=== PATIENT | male | born 1945 | race Two or more races ===

== ENCOUNTER → 2022-09-21 15:30 | Outpatient (CLI) | payer SELFPAY ==
--- NOTE | ~2022-09-21 | XR_ITS ---
EXAMINATION: XR wrist LT min 3V DATE: 09/21/2022 16:13 INDICATION: Left wrist pain. TECHNIQUE: 4 views of left wrist were obtained. COMPARISON: None. FINDINGS: Bone alignment is normal. No fracture. 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 IMPRESSION: 1. Polyarticular osteoarthritis. Reviewed, dictated and finalized at location E.
== END ==
DX: M19.032 Primary osteoarthritis, left wrist (principal)
CPT/HCPCS: 73110

== ENCOUNTER 2025-01-16 10:36 | Outpatient (CLI) | payer MEDICARE, SELFPAY ==
--- OUTSIDE RECORDS SUMMARY | 2024-08-29 04:58 | XMS_ITS | Continuity of Care Document ---
Author Organization [facility] Address [address] [facility] [address] [place] [address] Phone Care Team Providers Care Buyers' Agent Name Role Phone Kevin Mishra OD Unavailable Unavailable Allergies, Adverse Reactions, Alerts Substance Reaction Status Criticality fluorescein Active No Information Medications Medication Instructions Dosage Effective Dates (start - stop) Status Comments dexlansoprazole 60 mg capsule,biphase delayed release - Active Januvia 100 mg tablet - Acti ve Jardiance 25 mg tablet - Act jose pioglitazone 45 mg tablet - Active trazodone 50 mg tablet - Act jose ergocalciferol (vitamin D2) 1,250 mcg (50,000 unit) capsule TAKE 1 CAPSULE BY MOUTH ONCE A WEEK DIRECTED - Active naproxen 500 mg tablet TAKE 1 TABLET BY MOUTH EVERY 12 HOURS DIRECTED - Active fluticasone propionate 50 mcg/actuation nasal spray,suspension - Active amlodipine 5 mg tablet - Act jose atorvastatin 10 mg tablet - Active betamethasone dipropionate 0.05 % topical cream - Active enalapril maleate 20 mg tablet - Active glipizide 10 mg tablet - Act jose metformin 1,000 mg tablet - Active trazodone 100 mg tablet - Ac tive benzonatate 200 mg capsule TAKE 1 CAPSULE BY MOUTH EVERY 8 HOURS NEEDED FOR 10 DAYS - Active cetirizine 10 mg tablet TAKE 1 TABLET BY MOUTH ONCE DAILY DIRECTED - Active fluconazole 150 mg tablet - Active methylprednisolone 4 mg tablets in a dose pack - Active triamcinolone acetonide 0.1 % topical cream - Active Alcohol Pads - No Longer Active pioglitazone 30 mg tablet - No Longer Active omeprazole 40 mg capsule,delayed release - No Longer Active trazodone 150 mg tablet - No Longer Active Procedures Procedure Date Unapplied Credit To Be Moved Advance Directives Directive Yes / No Effective Date File Name No Information Encounters Encounter Description Practice Location Reason(s) For Visit Diagnoses Date Provider Providers Copied on Encounter [facility], [address] [place] [address], [id number], tel:[phone] [facility] No Information 5 Danica Brown. [address] [place] [address], [place] [address], [place], [id number], [place]. tel:[phone] [facility], [address] [place] [address], [id number], tel:[phone] [facility] No Information 5 Marguerite Fowler. [address] [place] [address], [place] [address], [place], [id number], [place]. tel:[phone] Referring Provider: Malcolm Everett, [address] [place] [address] [address], [address]. tel:[phone] Family History Family Member Type Diagnosis Age At Onset No Information Payers Payer name Insurance type Covered republican ID Authoriza tion(s) No Information Social History Type Description Quantity Date Captured Comments Sex Male Smoking Status No Information Chief Complaint And Reason For Visit No Information Reason For Referral Reason For Referral No Information History Of Present Illness Encounter Date Complaint History Of Prese nt Illness No Information Functional Status Date Functional Assessmen t No Information Instructions Date Instruction Additional Infor mation No Information Assessments Type Assessment Date No Information Patient Care Teams Name Effective Dates (start - stop) Status Members No Information
--- OUTSIDE RECORDS SUMMARY | 2025-01-15 04:00 | XMS_ITS | Continuity of Care Document ---
Author Organization [facility] [employer] [place] Address [address] [facility] [address] [place] [address] Phone Care Team Providers Care Evidence Specialist Name Role Phone Santiago Smith PTA Unavailable Unavailable Procedures Procedure Date Therapeutic Activities Therapeutic Activities Therapeutic Activities Manual Therapy Therapeutic Activities Manual Therapy Therapeutic Activities Manual Therapy Therapeutic Activities Manual Therapy Therapeutic Activities Manual Therapy Progress Note Therapeutic Activities Progress Note Therapeutic Activities Manual Therapy Therapeutic Activities Therapeutic Activities Manual Therapy Therapeutic Activities Manual Therapy Therapeutic Activities Manual Therapy Therapeutic Activities Manual Therapy Therapeutic Activities Manual Therapy Therapeutic Activities Therapeutic Activities Neuromuscular Re-Ed Manual Therapy Progress Note Therapeutic Activities Therapeutic Activities Neuromuscular Re-Ed Manual Therapy Therapeutic Activities Therapeutic Activities Manual Therapy Therapeutic Activities Manual Therapy Therapeutic Activities Therapeutic Activities Therapeutic Activities Therapeutic Activities Therapeutic Activities Progress Note Therapeutic Activities Therapeutic Activities Therapeutic Activities Therapeutic Activities Therapeutic Activities Therapeutic Activities Manual Therapy Therapeutic Activities Therapeutic Activities Therapeutic Activities Progress Note Therapeutic Activities Therapeutic Activities Neuromuscular Re-Ed Therapeutic Activities Therapeutic Activities Neuromuscular Re-Ed Manual Therapy Therapeutic Activities Neuromuscular Re-Ed Therapeutic Activities Neuromuscular Re-Ed Therapeutic Activities Neuromuscular Re-Ed Therapeutic Activities Neuromuscular Re-Ed Manual Therapy Therapeutic Activities Neuromuscular Re-Ed Manual Therapy Therapeutic Activities Neuromuscular Re-Ed Manual Therapy Progress Note Therapeutic Activities Manual Therapy Therapeutic Activities Neuromuscular Re-Ed Therapeutic Activities Therapeutic Activities Neuromuscular Re-Ed Manual Therapy Therapeutic Activities Neuromuscular Re-Ed Manual Therapy Therapeutic Activities Manual Therapy Therapeutic Activities Manual Therapy Therapeutic Activities Therapeutic Activities Neuromuscular Re-Ed Therapeutic Activities Manual Therapy Progress Note Therapeutic Activities Manual Therapy Therapeutic Activities Manual Therapy Therapeutic Activities Manual Therapy Therapeutic Activities Neuromuscular Re-Ed Therapeutic Activities Therapeutic Activities Therapeutic Activities Neuromuscular Re-Ed Therapeutic Activities Therapeutic Activities Manual Therapy Doc neg elder mal no plan PT Evaluation Moderate Complexity Therapeutic Activities Therapeutic Activities Neuromuscular Re-Ed Therapeutic Activities Neuromuscular Re-Ed Therapeutic Activities Neuromuscular Re-Ed Therapeutic Activities Neuromuscular Re-Ed Manual Therapy Therapeutic Activities Therapeutic Activities Neuromuscular Re-Ed Manual Therapy Therapeutic Activities Neuromuscular Re-Ed Manual Therapy Therapeutic Activities Manual Therapy Therapeutic Activities Manual Therapy Therapeutic Activities Manual Therapy Progress Note Therapeutic Activities Therapeutic Activities Therapeutic Activities Therapeutic Activities Therapeutic Activities Manual Therapy Therapeutic Activities Therapeutic Activities Therapeutic Activities Therapeutic Activities Manual Therapy Progress Note Therapeutic Activities Therapeutic Activities Therapeutic Activities Therapeutic Activities Therapeutic Activities Therapeutic Activities Therapeutic Activities Therapeutic Activities Therapeutic Activities Therapeutic Activities Progress Note Therapeutic Activities Therapeutic Activities Therapeutic Activities Therapeutic Activities Therapeutic Activities Therapeutic Activities Therapeutic Activities Therapeutic Activities Therapeutic Activities Therapeutic Activities Progress Note Therapeutic Activities Therapeutic Activities Therapeutic Activities Therapeutic Activities Manual Therapy Therapeutic Activities Therapeutic Activities Therapeutic Activities Therapeutic Activities Therapeutic Activities Therapeutic Activities Progress Note Therapeutic Activities Therapeutic Activities Therapeutic Activities Therapeutic Activities Therapeutic Activities Therapeutic Activities Therapeutic Activities Therapeutic Activities Therapeutic Exercise Progress Note Therapeutic Activities Therapeutic Activities Therapeutic Activities Therapeutic Activities Therapeutic Activities Neuromuscular Re-Ed Therapeutic Activities Manual Therapy Therapeutic Activities Progress Note Therapeutic Activities Therapeutic Activities Therapeutic Activities Therapeutic Activities Therapeutic Activities Therapeutic Activities Therapeutic Activities Therapeutic Activities Therapeutic Activities Progress Note Therapeutic Activities Neuromuscular Re-Ed Therapeutic Activities Therapeutic Activities Neuromuscular Re-Ed Therapeutic Activities Therapeutic Activities Neuromuscular Re-Ed Therapeutic Activities Neuromuscular Re-Ed Therapeutic Activities Therapeutic Activities Neuromuscular Re-Ed Progress Note Therapeutic Activities Neuromuscular Re-Ed Therapeutic Activities Neuromuscular Re-Ed Therapeutic Exercise Therapeutic Activities Neuromuscular Re-Ed Therapeutic Exercise Therapeutic Activities Therapeutic Activities Therapeutic Exercise Therapeutic Activities Therapeutic Activities Neuromuscular Re-Ed Progress Note Therapeutic Activities Neuromuscular Re-Ed Therapeutic Activities Therapeutic Activities Neuromuscular Re-Ed Therapeutic Exercise Therapeutic Activities Neuromuscular Re-Ed Therapeutic Exercise Therapeutic Activities Therapeutic Activities Neuromuscular Re-Ed Therapeutic Exercise Therapeutic Activities Neuromuscular Re-Ed Therapeutic Exercise Manual Therapy Progress Note Therapeutic Activities Therapeutic Exercise Therapeutic Activities Neuromuscular Re-Ed Therapeutic Exercise Therapeutic Activities Neuromuscular Re-Ed Therapeutic Exercise Therapeutic Activities Therapeutic Exercise Therapeutic Activities Neuromuscular Re-Ed Therapeutic Exercise Therapeutic Activities Neuromuscular Re-Ed Therapeutic Exercise Progress Note Therapeutic Activities Neuromuscular Re-Ed Therapeutic Exercise Neuromuscular Re-Ed Therapeutic Exercise Neuromuscular Re-Ed Therapeutic Exercise Therapeutic Activities Therapeutic Exercise Therapeutic Activities Therapeutic Exercise Manual Therapy Therapeutic Activities Neuromuscular Re-Ed Therapeutic Exercise Therapeutic Activities Neuromuscular Re-Ed Therapeutic Exercise Therapeutic Activities Neuromuscular Re-Ed Therapeutic Exercise Therapeutic Activities Neuromuscular Re-Ed Progress Note Therapeutic Activities Therapeutic Exercise Therapeutic Activities Neuromuscular Re-Ed Therapeutic Exercise Therapeutic Activities Neuromuscular Re-Ed Therapeutic Exercise Therapeutic Activities Therapeutic Exercise Therapeutic Activities Neuromuscular Re-Ed Therapeutic Exercise Therapeutic Activities Therapeutic Exercise Therapeutic Activities Therapeutic Activities Neuromuscular Re-Ed Therapeutic Exercise Manual Therapy Progress Note Therapeutic Activities Neuromuscular Re-Ed Therapeutic Exercise Therapeutic Activities Neuromuscular Re-Ed Therapeutic Exercise Therapeutic Activities Neuromuscular Re-Ed Therapeutic Exercise Manual Therapy Therapeutic Activities Neuromuscular Re-Ed Therapeutic Activities Neuromuscular Re-Ed Therapeutic Exercise Therapeutic Activities Neuromuscular Re-Ed Therapeutic Activities Neuromuscular Re-Ed Therapeutic Exercise Therapeutic Activities Neuromuscular Re-Ed Therapeutic Exercise Therapeutic Activities Neuromuscular Re-Ed Therapeutic Exercise Therapeutic Activities Therapeutic Exercise Therapeutic Activities Neuromuscular Re-Ed Therapeutic Exercise Therapeutic Exercise Therapeutic Activities Neuromuscular Re-Ed Progress Note Therapeutic Activities Neuromuscular Re-Ed Therapeutic Exercise Therapeutic Activities Therapeutic Exercise Therapeutic Activities Therapeutic Exercise Therapeutic Activities Therapeutic Exercise Therapeutic Activities Therapeutic Exercise Therapeutic Activities Neuromuscular Re-Ed Therapeutic Exercise Therapeutic Exercise Therapeutic Activities Neuromuscular Re-Ed Therapeutic Exercise Therapeutic Activities Therapeutic Exercise Therapeutic Activities Therapeutic Exercise Therapeutic Activities Therapeutic Exercise Doc neg elder mal no plan PT Evaluation Moderate Complexity Therapeutic Activities Therapeutic Exercise Advance Directives Directive Yes / No Effective Date File Name No Information Encounters Encounter Description Practice Location Reason(s) For Visit Diagnoses Date Provider Providers Copied on Encounter [facility] [place], [address], [place], [place], [address], [place] tel:[phone] [place] No Information Nov-0 5-202 5 Oh[place]orge Santiago. . Referring Provider: Alexandre Tavarez, [address], [place], [address]. tel:[phone] [facility], [place], [place], [address], [place] tel:[phone] [place] No Information Nov-0 3-202 5 Ohnesorge Santiago. . Referring Provider: Alexandre Tavarez, [address] [place], [address]. tel:[phone] [facility], [place], [place], [address], [place] tel:[phone] [place] No Information Oct-2 9-202 5 Ohnesorge Santiago. . Referring Provider: Alexandre Tavarez, [address] [place], [address]. tel:[phone] [place] [address], [place], [place], [address], [place] tel:[phone] [place] No Information Dec-2 7-202 5 Ohnesorge Santiago. . Referring Provider: Alexandre Tavarez, [address] [place], [address]. tel:[phone] [facility], [place], [place], [address], [place] tel:[phone] [place] No Information Oct-2 2-202 5 Ohnesorge Santiago. . Referring Provider: Alexandre Tavarez, [address] [place], [address]. tel:[phone] [facility], [place], [place], [address], [place] tel:[phone] [place] No Information Oct-2 0-202 5 Ohnesorge Santiago. . Referring Provider: Alexandre Tavarez, [address] [place], [address]. tel:[phone] [facility] [address] [address], [place], [place], [address], tel:[phone] [place] No Information Oct-1 5-202 5 Ohnesorge Santiago. . Referring Provider: Alexandre Tavarez, [address] [place], [address]. tel:[phone] [facility] [address] [address], [place], [place], [address], [place] tel:[phone] [place] [address] No Information Oct-1 3-202 5 Ohnesorge Santiago. . Referring Provider: Alexandre Tavarez, [address] [place], [address]. tel:[phone] [facility] [address] [address], [place], [place], [address], [place] tel:[phone] [place] [address] No Information Oct-0 7-202 5 Ohnesorge Santiago. . Referring Provider: Alexandre Tavarez, [address] [place], [address]. tel:[phone] [facility] [address], [id number], [place] tel:[phone] [place] No Information Oct-0 6-202 5 Ohnesorge Santiago. . Referring Provider: Alexandre Tavarez, [address] [place], [address]. tel:[phone] [facility] [address] [facility] [address], [place], [place], [address], tel:[phone] [place] No Information Oct-0 2-202 5 Ashmann Sneha. . Referring Provider: Alexandre Tavarez, [address] [place], [address]. tel:[phone] [facility], [address], [place], [place], [address], [place] tel:[phone] [place] No Information Sep-2 5 [place], [place], [place]. Referring Provider: Alexandre Tavarez, [address], [place], [address]. tel:[phone] [facility], [place], [place], [address], [place] tel:[phone] [place] No Information Sep-2 5 Magali Hoover. . Referring Provider: Alexandre Tavarez, [address] [place], [address]. tel:[phone] [facility], [place], [place], [address], [place] tel:[phone] [place] No Information Sep-2 5 Ohnesorge Santiago. . Referring Provider: Alexandre Tavaerz, [address], [place], [address]. tel:[phone] [facility], [place], [place], [address], [place] tel:[phone] [place] No Information Sep-1 5 Ohnesorge Santiago. . Referring Provider: Alexandre Tavarez, [address] [place], [address]. tel:[phone] [facility], [place], [place], [address], [place] tel:[phone] [place] No Information Sep-1 5 Ohnesorge Santiago. . Referring Provider: Alexandre Tavarez, [address] [place], [address]. tel:[phone] [facility], [place], [place], [address], [place] tel:[phone] [place] No Information Sep-1 0-202 5 Ohnesorge Santiago. . Referring Provider: Alexandre Tavarez, [address] [place], [address]. tel:[phone] [facility], [address], [place], [place], [address], [place] tel:[phone] [place] No Information Sep-0 8-202 5 Ohnesorge Santiago. . Referring Provider: Alexandre Tavarez, [address] [place], [address]. tel:[phone] [facility] [address] [facility], [place], [place], [address], tel:[phone] [place] No Information Sep-0 5-202 5 Ohnesorge Santiago. . Referring Provider: Alexandre Tavarez, [address] [place], [address]. tel:[phone] [facility] [address], [place], [place], [address], [place] tel:[phone] [place] No Information Sep-0 3-202 5 Ohnesorge Santiago. . Referring Provider: Alexandre Tavarez, [address] [place], [address]. tel:[phone] [facility] [address] [facility] [address], [place], [address], [place] tel:[phone] [place] No Information Aug-2 9-202 5 Ohnesorge Santiago. . Referring Provider: Alexandre Tavarez, [address] [place], [address]. tel:[phone] [facility] [facility] [address], [place], [place], [address], tel:[phone] [place] No Information Aug-2 7-202 5 Ohnesorge Santiago. . Referring Provider: Alexandre Tavarez, [address] [place], [address]. tel:[phone] [place] [address], [place], [place], [address], [place] tel:[phone] [place] No Information 5-202 5 Ohnesorge Santiago. . Referring Provider: Alexandre Tavarez, [address] [place], [address]. tel:[phone] [facility], [place], [place], [address], [place] tel:[phone] [place] No Information 2-202 5 Ohnesorge Santiago. . Referring Provider: Alexandre Tavarez, [address] [place], [address]. tel:[phone] [facility] [address] [facility] [address], [place], [place], [address], [place] tel:[phone] [place] No Information 0-202 5 Ohnesorge Santiago. . Referring Provider: Alexandre Tavarez, [address] [place], [address]. tel:[phone] [facility] [facility] [address], [place], [place], [address], [place] tel:[phone] [place] No Information 8- 5 Ohnesorge Santiago. . Referring Provider: Alexandre Tavarez, [address] [place], [address]. tel:[phone] [facility], [place], [place], [address], [place] tel:[phone] [place] No Information 5-202 5 Ohnesorge Santiago. . Referring Provider: Alexandre Tavarez, [address] [place], [address]. tel:[phone] [facility] [facility] [address], [place], [place], [address], [place] tel:[phone] [place] No Information 3-202 5 Ohnesorge Santiago. . Referring Provider: Alexandre Tavarez, [address] [place], [address]. tel:[phone] [facility], [address], [place], [place], [address], [place] tel:[phone] [place] No Information 1-202 5 Ohnesorge Santiago. . Referring Provider: Alexandre Tavarez, [address] [place], [address]. tel:[phone] [facility] [address], [place], [place], [address], tel:[phone] [place] No Information 0 8-202 5 Ohnesorge Santiago. . Referring Provider: Alexandre Tavarez, [address] [place], [address]. tel:[phone] [facility], [address], [place], [place], [address], [place] tel:[phone] [place] No Information 0 6-202 5 Ohnesorge Santiago. . Referring Provider: Alexandre Tavarez, [address] [place], [address]. tel:[phone] [facility] [address], [place], [place], [address], [place] tel:[phone] [place] No Information 0 4-202 5 Ohnesorge Santiago. . Referring Provider: Alexandre Tavarez, [address] [place], [address]. tel:[phone] [facility], [place], [place], [address], [place] tel:[phone] [place] No Information 0-202 5 Ohnesorge Santiago. . Referring Provider: Alexandre Tavarez, [address], [place], [address]. tel:[phone] [facility] [address] [facility] [address], [place], [place], [address], [place] tel:[phone] [place] No Information 8 5 Ohnesorge Santiago. . Referring Provider: Alexandre Tavarez, [address] [place], [address]. tel:[phone] [facility] [address], [place], [place], [address], [place] tel:[phone] [place] No Information 5 Ohnesorge Santiago. . Referring Provider: Alexandre Tavarez, [address] [place], [address]. tel:[phone] [facility], [place], [place], [address], [place] tel:[phone] [place] No Information 5 Ohnesorge Santiago. . Referring Provider: Alexandre Tavarez, [address] [place], [address]. tel:[phone] [facility] [facility] [address], [place], [address], [place] tel:[phone] [place] No Information 5 Ohnesorge Santiago. . Referring Provider: Alexandre Tavarez, [address] [place], [address]. tel:[phone] [facility], [place], [place], [address], [place] tel:[phone] [place] No Information 5 Ohnesorge Santiago. . Referring Provider: Alexandre Tavarez, [address] [place], [address]. tel:[phone] [facility], [place], [place], [address], [place] tel:[phone] [place] No Information Sep-0 9-202 5 Ohnesorge Santiago. . Referring Provider: Alexandre Tavarez, [address] [place], [address]. tel:[phone] [facility] [address], [place], [place], [address], [place] tel:[phone] [place] No Information Sep-0 8-202 5 Ohnesorge Santiago. . Referring Provider: Alexandre Tavarez, [address] [place], [address]. tel:[phone] [facility], [place], [place], [address], [place] tel:[phone] [place] No Information Sep-0 2-202 5 Ohnesorge Santiago. . Referring Provider: Alexandre Tavarez, [address] [place], [address]. tel:[phone] [facility], [place], [place], [address], [place] tel:[phone] [place] No Information Kofi-2 7- 5 [place], [place], [place]. Referring Provider: Alxeandre Tavarez, [address] [place], [address]. tel:[phone] [facility], [place], [place], [address], [place] tel:[phone] [place] No Information Kofi-2 3-202 5 Ohnesorge Santiago. . Referring Provider: Alexandre Tavarez, [address], [address]. tel:[phone] [facility], [place], [place], [address], [place] tel:[phone] [place] No Information Kofi-2 0-202 5 Ohnesorge Santiago. . Referring Provider: Alexandre Tavarez, [address] [place], [address]. tel:[phone] [facility], [address] [facility] [address] [facility], [place], [place], [address], tel:[phone] [place] No Information Aug-1 8-202 5 Ohnesorge Santiago. . Referring Provider: Alexandre Tavarez, [address] [place], [address]. tel:[phone] [facility] [address] [facility] [address] [place] [address], [id number], [place] tel:[phone] [place] No Information Aug-1 7-202 5 Ohnesorge Santiago. . Referring Provider: Alexandre Tavarez, [address] [place], [address]. tel:[phone] [place] [address], [id number], [place] tel:[phone] [place] No Information Aug-1 3-202 5 Ohnesorge Santiago. . Referring Provider: Alexandre Tavarez, [address] [place], [address]. tel:[phone] [facility] [address], [id number], [place] tel:[phone] [place] No Information Aug-1 1-202 5 [place], [place], [place]. Referring Provider: Alexandre Tavarez, [address] [place], [address]. tel:[phone] [facility] [address] [facility] [address], [place], [place], [address], [place] tel:[phone] [place] No Information Kofi-0 9-202 5 Ohnesorge Santiago. . Referring Provider: Alexandre Tavarez, [address] [place], [address]. tel:[phone] [facility], [address], [place], [place], [address], [place] tel:[phone] [place] No Information Kofi-0 6-202 5 Ohnesorge Santiago. . Referring Provider: Alexandre Tavarez, [address] [place], [address]. tel:[phone] [facility] [address], [place], [place], [address], [place] tel:[phone] [place] No Information Kofi-0 4-202 5 Ohnesorge Santiago. . Referring Provider: Alexandre Tavarez, [address] [place], [address]. tel:[phone] [facility], [address], [place], [place], [address], [place] tel:[phone] [place] No Information Kofi-0 2-202 5 Ohnesorge Santiago. . Referring Provider: Alexandre Tavarez, [address] [place], [address]. tel:[phone] [facility] [address], [place], [place], [address], [place] tel:[phone] [place] No Information May-3 0-202 5 Ohnesorge Santiago. . Referring Provider: Alexandre Tavarez, [address] [place], [address]. tel:[phone] [facility], [address], [place], [place], [address], [place] tel:[phone] [place] No Information May-2 8-202 5 Ohnesorge Santiago. . Referring Provider: Alexandre Tavarez, [address] [place], [address]. tel:[phone] [facility], [place], [place], [address], [place] tel:[phone] [place] No Information July-2 3-202 5 Ohnesorge Santiago. . Referring Provider: Alexandre Tavarez [address] [place], [address]. tel:[phone] [facility] [facility] [facility], [place], [place], [address], tel:[phone] [place] No Information July-2 1-202 5 Ohnesorge Santiago. . Referring Provider: Alexandre Tavarez, [address] [place], [address]. tel:[phone] [facility] [address] [address], [place], [place], [address], tel:[phone] [place] No Information -202 5 Ohnesorge Santiago. . Referring Provider: Alexandre Tavarez [address] [place], [address]. tel:[phone] [facility] [address] [facility] [address] [place] [address], [id number], [place] tel:[phone] [place] No Information 6-202 5 Ohnesorge Santiago. . Referring Provider: Alexandre Tavarez, [address], [address]. tel:[phone] [facility] [address], [id number], [place] tel:[phone] [place] No Information 4-202 5 Ohnesorge Santiago. . Referring Provider: Alexandre Tavarez, [address] [place], [address]. tel:[phone] [facility] [facility] [address], [place], [place], [address], tel:[phone] [place] No Information July- 2-202 5 Ohnesorge Santiago. . Referring Provider: Alexandre Tavarez [address] [place], [address]. tel:[phone] [place] [address] [address] [facility] [address], [place], [place], [address], [place] tel:[phone] [place] No Information May-0 9-202 5 Ohnesorge Santiago. . Referring Provider: Alexandre Taavrez, [address] [place], [address]. tel:[phone] [facility] [address] [facility], [place], [place], [address], [place] tel:[phone] [place] No Information May-0 7-202 5 Ohnesorge Santiago. . Referring Provider: Alexandre Tavarez, [address] [place], [address]. tel:[phone] [facility] [address], [id number], [place] tel:[phone] [place] No Information May-0 5-202 5 Ohnesorge Santiago. . Referring Provider: Alexandre Tavarez, [address] [place], [address]. tel:[phone] [facility] [facility] [address], [place], [place], [address], [place] tel:[phone] [place] No Information May-0 2-202 5 Ohnesorge Santiago. . Referring Provider: Alexandre Tavarez, [address] [place], [address]. tel:[phone] [facility] [facility] [address], [place], [place], [address], [place] tel:[phone] [place] No Information Apr-3 0-202 5 Ohnesorge Santiago. . Referring Provider: Alexandre Tavarez, [address] [place], [address]. tel:[phone] [facility] [facility] [address], [place], [place], [address], [place] tel:[phone] [place] No Information 5 [facility] [place]. Referring Provider: Alexandre Tavarez, [address] [place], [address]. tel:[phone] [facility], [address], [place], [place], [address], [place] tel:[phone] [place] No Information 4 [place], [place], [place]. Referring Provider: Alexandre Tavarez, [address] [place], [address]. tel:[phone] [facility], [address] [facility], [place], [place], [address], [place] tel:[phone] [place] No Information 4 [place]. Referring Provider: Alexandre Tavarez, [address] [place], [address]. tel:[phone] [facility], [address], [place], [place], [address], [place] tel:[phone] [place] No Information 4 [facility]. Referring Provider: Alexandre Tavarez, [address] [place], [address]. tel:[phone] [facility], [place], [place], [address], [place] tel:[phone] [place] No Information Dec-0 - 4 Ohnesorge Santiago. . Referring Provider: Alexandre Tavarez, [address] [place], [address]. tel:[phone] [facility], [place], [place], [address], [place] tel:[phone] [place] No Information Dec-0 2- 4 Ohnesorge Santiago. . Referring Provider: Alexandre Tavarez, [address], [place], [address]. tel:[phone] [facility], [place], [place], [address], [place] tel:[phone] [place] No Information 4 Ohnesorge Santiago. . Referring Provider: Alexandre Tavarez, [address], [place], [address]. tel:[phone] [facility], [address], [place], [place], [address], [place] tel:[phone] [place] No Information 4 Ohnesorge Santiago. . Referring Provider: Alexandre Tavarez, [address], [place], [address]. tel:[phone] [facility], [place], [place], [address], [place] tel:[phone] [place] No Information 4 Lurtz Jeanine. . Referring Provider: Alexandre Tavarez, [address], [place], [address]. tel:[phone] [facility] [address], [place], [place], [address], [place] tel:[phone] [place] No Information 4 Ohnesorge Santiago. . Referring Provider: Alexandre Tavarez, [address], [place], [address]. tel:[phone] [facility], [place], [place], [address], [place] tel:[phone] [place] No Information 4 Lurtz Jeanine. . Referring Provider: Alexandre Tavarez, [address], [place], [address]. tel:[phone] [facility] [address], [place], [place], [address], [place] tel:[phone] [place] No Information 4 Ohnesorge Santiago. . Referring Provider: Alexandre Tavarez, [address], [place], [address]. tel:[phone] [facility] [address], [place], [place], [address], [place] tel:[phone] [place] No Information 4 Lurtz Jeanine. . Referring Provider: Alexandre Tavarez, [address] [place], [address]. tel:[phone] [facility], [place], [place], [address], [place] tel:[phone] [place] No Information 4 Ohnesorge Santiago. . Referring Provider: Alexandre Tavarez, [address] [place], [address]. tel:[phone] [facility], [place], [place], [address], [place] tel:[phone] [place] No Information 4 Ohnesorge Santiago. . Referring Provider: Alexandre Tavarez, [address] [place], [address]. tel:[phone] [facility], [place], [place], [address], [place] tel:[phone] [place] No Information 4 Ohnesorge Santiago. . Referring Provider: Alexandre Tavarez, [address] [place], [address]. tel:[phone] [facility], [place], [place], [address], [place] tel:[phone] [place] No Information Oct-1 8-202 4 Ohnesorge Santiago. . Referring Provider: Alexandre Tavarez, [address] [place], [address]. tel:[phone] [facility], [address] [facility] [facility], [place], [place], [address], tel:[phone] [place] No Information 5-202 4 Ohnesorge Santiago. . Referring Provider: Alexandre Tavarez, [address] [place], [address]. tel:[phone] [facility] [address] [facility] [place] [address], [id number], [place] tel:[phone] [place] No Information - 4 Ohnesorge Santiago. . Referring Provider: Alexandre Tavarez, [address] [place], [address]. tel:[phone] [place] [address], [id number], [place] tel:[phone] [place] No Information 0 7-202 4 Ohnesorge Santiago. . Referring Provider: Alexandre Tavarez, [address] [place], [address]. tel:[phone] [facility] [address], [id number], [place] tel:[phone] [place] No Information 0 4-202 4 Ohnesorge Santiago. . Referring Provider: Alexandre Tavarez, [address] [place], [address]. tel:[phone] [facility] [address] [facility] [address], [place], [place], [address], [place] tel:[phone] [place] No Information 0 1-202 4 Ohnesorge Santiago. . Referring Provider: Alexandre Tavarez, [address] [place], [address]. tel:[phone] [facility], [address], [place], [place], [address], [place] tel:[phone] [place] No Information Sep-2 4 [facility]. Referring Provider: Alexandre Tavarez, [address], [place], [address]. tel:[phone] [facility], [place], [place], [address], [place] tel:[phone] [place] No Information Sep-2 4 [facility]. Referring Provider: Alexandre Tavarez, [address], [place], [address]. tel:[phone] [facility], [address], [place], [place], [address], [place] tel:[phone] [place] No Information Sep-2 4 Ohnesorge Santiago. . Referring Provider: Alexandre Tavarez, [address], [place], [address]. tel:[phone] [facility], [place], [place], [address], [place] tel:[phone] [place] No Information Sep-1 4 Ohnesorge Sanitago. . Referring Provider: Alexandre Tavarez, [address], [place], [address]. tel:[phone] [facility], [place], [place], [address], [place] tel:[phone] [place] No Information Sep-1 4 Ohnesorge Santiago. . Referring Provider: Alexandre Tavarez, [address] [place], [address]. tel:[phone] [facility], [place], [place], [address], [place] tel:[phone] [place] No Information Sep-1 0-202 4 Ohnesorge Santiago. . Referring Provider: Alexandre Tavarez, [address] [place], [address]. tel:[phone] [facility], [address] [facility], [place], [place], [address], [place] tel:[phone] [place] No Information Sep-0 6-202 4 Ohnesorge Santiago. . Referring Provider: Alexandre Tavarez, [address], [address]. tel:[phone] [facility] [address] [facility], [place], [place], [address], [place] tel:[phone] [place] No Information Sep-0 3-202 4 Ohnesorge Santiago. . Referring Provider: Alexandre Tavarez, [address] [place], [address]. tel:[phone] [facility], [address] [facility], [place], [place], [address], [place] tel:[phone] [place] No Information Oct-2 4 Ohnesorge Santiago. . Referring Provider: Alexandre Tavarez, [address], [address]. tel:[phone] [facility] [address] [facility], [place], [place], [address], [place] tel:[phone] [place] No Information Oct-2 3-202 4 Ohnesorge Santiago. . Referring Provider: Alexandre Tavarez, [address], [address]. tel:[phone] [facility] [facility], [place], [place], [address], [place] tel:[phone] [place] No Information Oct-1 6- 4 Ohnesorge Santiago. . Referring Provider: Alexandre Tavarez, [address] [place], [address]. tel:[phone] [facility], [place], [place], [address], [place] tel:[phone] [place] No Information 3-202 4 Ohnesorge Santiago. . Referring Provider: Alexandre Tavarez, [address] [place], [address]. tel:[phone] [facility], [place], [place], [address], [place] tel:[phone] [place] No Information 0 4 Ohnesorge Santiago. . Referring Provider: Alexandre Tavarez, [address] [place], [address]. tel:[phone] [facility] [address] [facility] [place], [place], [place], [address], [place] tel:[phone] [place] No Information 0 6-202 4 Ohnesorge Santiago. . Referring Provider: Alexandre Tavarez, [address] [place], [address]. tel:[phone] [facility] [facility], [place], [place], [address], [place] tel:[phone] [place] No Information 0 2-202 4 Ohnesorge Santiago. . Referring Provider: Alexandre Tavarez, [address] [place], [address]. tel:[phone] [facility], [place], [place], [address], [place] tel:[phone] [place] No Information 0-202 4 Ohnesorge Santiago. . Referring Provider: Alexandre Tavarez, [address] [place], [address]. tel:[phone] [facility] [facility], [place], [place], [address], [place] tel:[phone] [place] No Information 4 Ohnesorge Santiago. . Referring Provider: Alexandre Tavarez, [address] [place], [address]. tel:[phone] [facility], [address], [place], [place], [address], [place] tel:[phone] [place] No Information 4 Ohnesorge Santiago. . Referring Provider: Alexandre Tavarez, [address] [place], [address]. tel:[phone] [facility], [address] [facility], [place], [place], [address], [place] tel:[phone] [place] No Information 4 Lurtz Jeanine. . Referring Provider: Alexandre Tavarez, [address] [place], [address]. tel:[phone] [facility], [address], [place], [place], [address], [place] tel:[phone] [place] No Information 4 Ohnesorge Santiago. . Referring Provider: Alexandre Tavarez, [address] [place], [address]. tel:[phone] [facility], [place], [place], [address], [place] tel:[phone] [place] No Information 4 Lurtz Jeanine. . Referring Provider: Alexandre Tavarez, [address] [place], [address]. tel:[phone] [facility], [place], [place], [address], [place] tel:[phone] [place] No Information 0 4 Ohnesorge Santiago. . Referring Provider: Alexandre Morro Corby, [address] [place], [address]. tel:[phone] [facility], [place], [place], [address], [place] tel:[phone] [place] No Information 4 Ohnesorge Santiago. . Referring Provider: Alexandre Hooker Corby, [address] [place], [address]. tel:[phone] [facility], [address], [place], [place], [address], [place] tel:[phone] [place] No Information 4 Klahn David. . Referring Provider: Alexandre Tavarez, [address] [place], [address]. tel:[phone] [facility], [place], [place], [address], [place] tel:[phone] [place] No Information 4 Ohnesorge Santiago. . Referring Provider: Alexandre Hooker Corby, [address] [place], [address]. tel:[phone] [facility], [place], [place], [address], [place] tel:[phone] [place] No Information 4 Ohnesorge Santiago. . Referring Provider: Alexandre Morro Corby, [address] [place], [address]. tel:[phone] [facility], [place], [place], [address], [place] tel:[phone] [place] No Information 4 Ohnesorge Santiago. . Referring Provider: Alexandre Tavarez, [address] [place], [address]. tel:[phone] [facility], [place], [place], [address], [place] tel:[phone] [place] No Information Aug- 4-202 4 Ronnyn David. . Referring Provider: Alexandre Tavarez, [address] [place], [address]. tel:[phone] [facility] [address] [facility], [place], [place], [address], [place] tel:[phone] [place] No Information 0-202 4 Ohnesorge Santiago. . Referring Provider: Alexandre Tavarez, [address] [place], [address]. tel:[phone] [facility], [address] [facility], [place], [place], [address], [place] tel:[phone] [place] No Information 0 6- 4 Hitesh Hernandez. . Referring Provider: Alexandre Tavarez, [address] [place], [address]. tel:[phone] [facility], [address] [facility], [place], [place], [address], [place] tel:[phone] [place] No Information Aug-0 - 4 Ohnesorge Santiago. . Referring Provider: Alexandre Tavarez, [address] [place], [address]. tel:[phone] [facility], [place], [place], [address], [place] tel:[phone] [place] No Information July-3 - 4 Ohnesorge Santiago. . Referring Provider: Alexandre Tavarez, [address] [place], [address]. tel:[phone] [facility], [place], [place], [address], [place] tel:[phone] [place] No Information July-2 -202 4 Ohnesorge Santiago. . Referring Provider: Alexandre Tavarez, [address] [place], [address]. tel:[phone] [facility] [address] [facility], [place], [place], [address], tel:[phone] [place] No Information May-2 4-202 4 Ohnesorge Santiago. . Referring Provider: Alexandre Tavarez, [address] [place], [address]. tel:[phone] [facility] [address], [place], [place], [address], [place] tel:[phone] [place] No Information May-2 0-202 4 Ohnesorge Santiago. . Referring Provider: Alexandre Tavarez, [address] [place], [address]. tel:[phone] [facility] [address] [facility], [place], [place], [address], [place] tel:[phone] [place] No Information May-1 6-202 4 Ohnesorge Santiago. . Referring Provider: Alexandre Tavarez, [address] [place], [address]. tel:[phone] [facility] [address] [facility] [place] [address], [id number], [place] tel:[phone] [place] No Information May-1 3-202 4 Ohnesorge Santiago. . Referring Provider: Alexandre Tavarez, [address] [place], [address]. tel:[phone] [facility] [address] [facility], [place], [place], [address], [place] tel:[phone] [place] No Information May-0 9-202 4 Ohnesorge Santiago. . Referring Provider: Alexandre Tavarez, [address] [place], [address]. tel:[phone] [place] [address] [address], [place], [place], [address], [place] tel:[phone] [place] No Information May-0 6-202 4 Ohnesorge Santiago. . Referring Provider: Alexandre Tavarez, [address] [place], [address]. tel:[phone] [facility], [place], [place], [address], [place] tel:[phone] [place] No Information May-0 3-202 4 Ohnesorge Santiago. . Referring Provider: Alexandre Tavarez, [address] [place], [address]. tel:[phone] [facility], [place], [place], [address], [place] tel:[phone] [place] No Information Apr-2 9-202 4 Ohnesorge Santiago. . Referring Provider: Alexandre Tavarez, [address] [place], [address]. tel:[phone] [place] [address] [address], [place], [place], [address], [place] tel:[phone] [place] No Information Apr-2 5-202 4 Ohnesorge Santiago. . Referring Provider: Alexandre Tavarez, [address] [place], [address]. tel:[phone] [facility], [place], [place], [address], [place] tel:[phone] [place] No Information Apr-2 2-202 4 Ohnesorge Santiago. . Referring Provider: Alexandre Tavarez, [address] [place], [address]. tel:[phone] [facility], [place], [place], [address], [place] tel:[phone] [place] No Information Apr-1 8-202 4 Ohnesorge Santiago. . Referring Provider: Alexandre Tavarez, [address] [place], [address]. tel:[phone] [facility], [address] [address], [place], [place], [address], tel:[phone] [place] No Information Jun-1 - 4 Ohnesorge Santiago. . Referring Provider: Alexandre Tavarez, [address] [place], [address]. tel:[phone] [facility] [address] [address], [place], [place], [address], [place] tel:[phone] [place] No Information Jun-1 - 4 Ohnesorge Santiago. . Referring Provider: Alexandre Tavarez, [address] [place], [address]. tel:[phone] [facility] [address] [address], [place], [place], [address], [place] tel:[phone] [place] No Information Apr-0 8-202 4 Ohnesorge Santiago. . Referring Provider: Alexandre Tavarez, [address] [place], [address]. tel:[phone] [facility] [address], [id number], [place] tel:[phone] [place] No Information Apr-0 4-202 4 Ohnesorge Santiago. . Referring Provider: Alexandre Tavarez, [address] [place], [address]. tel:[phone] [facility] [address] [address], [place], [place], [address], [place] tel:[phone] [place] No Information Apr-0 1-202 4 Ohnesorge Santiago. . Referring Provider: Alexandre Tavarez, [address] [place], [address]. tel:[phone] [facility], [address], [place], [place], [address], [place] tel:[phone] [place] No Information Mar-2 4 Ohnesorge Santiago. . Referring Provider: Alexandre Tavarez, [address], [place], [address]. tel:[phone] [facility] [address], [place], [place], [address], [place] tel:[phone] [place] No Information Mar-2 4 Klstormyn David. . Referring Provider: Alexandre Tavarez, [address], [place], [address]. tel:[phone] [facility], [address], [place], [place], [address], [place] tel:[phone] [place] No Information Mar-2 4 Ohnesorge Santiago. . Referring Provider: Alexandre Tavarez, [address], [place], [address]. tel:[phone] [facility], [address], [place], [place], [address], [place] tel:[phone] [place] No Information May- 4 Ohnesorge Santiago. . Referring Provider: Alexandre Tavarez, [address], [place], [address]. tel:[phone] [facility], [place], [place], [address], [place] tel:[phone] [place] No Information Mar-1 4 Ohnesorge Santiago. . Referring Provider: Alexandre Tavarez, [address] [place], [address]. tel:[phone] [facility], [place], [place], [address], [place] tel:[phone] [place] No Information Mar-1 1-202 4 Ohnesorge Santiago. . Referring Provider: Alexandre Tavarez, [address] [place], [address]. tel:[phone] [facility], [address], [place], [place], [address], [place] tel:[phone] [place] No Information Mar-0 7-202 4 Ohnesorge Santiago. . Referring Provider: Alexandre Tavarez, [address], [address]. tel:[phone] [facility] [address], [place], [place], [address], [place] tel:[phone] [place] No Information Mar-0 4-202 4 Ohnesorge Santiago. . Referring Provider: Alexandre Tavarez, [address] [place], [address]. tel:[phone] [facility], [address], [place], [place], [address], [place] tel:[phone] [place] No Information Feb-2 9- 4 Ohnesorge Santiago. . Referring Provider: Alexandre Tavarez, [address] [place], [address]. tel:[phone] [facility] [address], [place], [place], [address], [place] tel:[phone] [place] No Information Feb-2 6-202 4 Ohnesorge Santiago. . Referring Provider: Alexandre Tavarez, [address] [place], [address]. tel:[phone] [facility], [place], [place], [address], [place] tel:[phone] [place] No Information Feb-2 2-202 4 Ohnesorge Santiago. . Referring Provider: Alexandre Tavarez, [address] [place], [address]. tel:[phone] [facility] [address], [place], [place], [address], [place] tel:[phone] [place] No Information Feb-03 21- 4 Ohnesorge Santiago. . Referring Provider: Alexandre Tavarez, [address] [place], [address]. tel:[phone] [facility] [address], [place], [place], [address], [place] tel:[phone] [place] No Information b 4 Ohnesorge Santiago. . Referring Provider: Alexandre Tavarez, [address] [place], [address]. tel:[phone] [facility] [address] [facility], [place], [place], [address], [place] tel:[phone] [place] No Information Feb-1 2- 4 Ohnesorge Santiago. . Referring Provider: Alexandre Tavarez, [address] [place], [address]. tel:[phone] [facility] [address], [place], [place], [address], [place] tel:[phone] [place] No Information Feb-0 8- 4 Ohnesorge Santiago. . Referring Provider: Alexandre Tavarez, [address] [place], [address]. tel:[phone] [facility] [address], [place], [place], [address], [place] tel:[phone] [place] No Information Feb-0 5- 4 Ohnesorge Santiago. . Referring Provider: Alexandre Tavarez, [address] [place], [address]. tel:[phone] [facility], [place], [place], [address], [place] tel:[phone] [place] No Information 4 Ohnesorge Santiago. . Referring Provider: Alexandre Tavarez, [address], [place], [address]. tel:[phone] [facility], [place], [place], [address], [place] tel:[phone] [place] No Information 4 Ohnesorge Santiago. . Referring Provider: Alexandre Tavarez, [address] [place], [address]. tel:[phone] [facility], [place], [place], [address], [place] tel:[phone] [place] No Information 4 Ohnesorge Santiago. . Referring Provider: Alexandre Tavarez, [address], [place], [address]. tel:[phone] [facility], [place], [place], [address], [place] tel:[phone] [place] No Information 4 Klstormyn David. . Referring Provider: Alexandre Tavarez, [address] [place], [address]. tel:[phone] [facility], [place], [place], [address], [place] tel:[phone] [place] No Information 4 Ohnesorge Santiago. . Referring Provider: Alexandre Tavarez, [address] [place], [address]. tel:[phone] [facility], [place], [place], [address], [place] tel:[phone] [place] No Information 4 Ohnesorge Santiago. . Referring Provider: Alexandre Tavarez, [address] [place], [address]. tel:[phone] [facility] [address], [place], [place], [address], [place] tel:[phone] [place] No Information 4 Klahn David. . Referring Provider: Alexandre Tavarez, [address] [place], [address]. tel:[phone] [facility], [address], [place], [place], [address], [place] tel:[phone] [place] No Information 4 Ohnesorge Santiago. . Referring Provider: Alexandre Tavarez, [address] [place], [address]. tel:[phone] [facility] [address], [place], [place], [address], [place] tel:[phone] [place] No Information 4 Ohnesorge Santiago. . Referring Provider: Alexandre Tavarez, [address] [place], [address]. tel:[phone] [facility], [address], [place], [place], [address], [place] tel:[phone] [place] No Information 3 Ohnesorge Santiago. . Referring Provider: Alexandre Tavarez, [address] [place], [address]. tel:[phone] [facility], [place], [place], [address], [place] tel:[phone] [place] No Information 3 Ohnesorge Santiago. . Referring Provider: Alexandre Tavarez, [address] [place], [address]. tel:[phone] [place] [address], [place], [place], [address], [place] tel:[phone] [place] No Information 3 Ohnesorge Santiago. . Referring Provider: Alexandre Tavarez, [address], [address]. tel:[phone] [facility] [address], [place], [place], [address], [place] tel:[phone] [place] No Information Dec- 3 Klahn David. . Referring Provider: Alexandre Tavarez, [address] [place], [address]. tel:[phone] [facility], [place], [place], [address], [place] tel:[phone] [place] No Information 3 Ohnesorge Santiago. . Referring Provider: Alexandre Tavarez, [address] [place], [address]. tel:[phone] [facility], [place], [place], [address], [place] tel:[phone] [place] No Information Dec-0 3 Ohnesorge Santiago. . Referring Provider: Alexandre Tavarez, [address] [place], [address]. tel:[phone] [facility], [place], [place], [address], [place] tel:[phone] [place] No Information Dec-0 - 3 Ohnesorge Santiago. . Referring Provider: Alexandre Tavarez, [address] [place], [address]. tel:[phone] [facility], [place], [place], [address], [place] tel:[phone] [place] No Information Nov-3 0-202 3 Ohnesorge Santiago. . Referring Provider: Alexandre Tavarze, [address] [place], [address]. tel:[phone] [facility], [address], [place], [place], [address], tel:[phone] [place] No Information 3 Klstormyn David. . Referring Provider: Alexandre Tavarez, [address] [place], [address]. tel:[phone] [facility] [address], [place], [place], [address], [place] tel:[phone] [place] No Information 3 Ohnesorge Santiago. . Referring Provider: Alexandre Tavarez, [address] [place], [address]. tel:[phone] [place] [address] [address], [place], [place], [address], [place] tel:[phone] [place] No Information 3 Ohnesorge Santiago. . Referring Provider: Alexandre Tavarez, [address] [place], [address]. tel:[phone] [facility] [address], [address], [place] tel:[phone] [place] No Information 3 Ohnesorge Santiago. . Referring Provider: Alexandre Tavarez, [address] [place], [address]. tel:[phone] [facility] [address], [place], [place], [address], [place] tel:[phone] [place] No Information -202 3 Ohnesorge Santiago. . Referring Provider: Alexandre Tavarez, [address] [place], [address]. tel:[phone] [facility], [address], [place], [place], [address], [place] tel:[phone] [place] No Information Nov-0 9-202 3 Ohnesorge Santiago. . Referring Provider: Alexandre Tavarez, [address] [place], [address]. tel:[phone] [facility] [address], [place], [place], [address], [place] tel:[phone] [place] No Information Nov-0 7-202 3 Ohnesorge Santiago. . Referring Provider: Alexandre Tavarez, [address] [place], [address]. tel:[phone] [facility], [address], [place], [place], [address], [place] tel:[phone] [place] No Information Nov-0 2-202 3 Ohnesorge Santiago. . Referring Provider: Alexandre Tavarez, [address] [place], [address]. tel:[phone] [facility], [place], [place], [address], [place] tel:[phone] [place] No Information Dec-3 0-202 3 Ohnesorge Santiago. . Referring Provider: Alexandre Tavarez, [address] [place], [address]. tel:[phone] [facility], [place], [place], [address], [place] tel:[phone] [place] No Information Dec-2 6-202 3 Ohnesorge Santiago. . Referring Provider: Alexandre Tavarez, [address] [place], [address]. tel:[phone] [facility], [place], [place], [address], [place] tel:[phone] [place] No Information Dec-2 3-202 3 Ohnesorge Santiago. . Referring Provider: Alexandre Tavarez, [address], [place], [address]. tel:[phone] [facility], [address], [place], [place], [address], [place] tel:[phone] [place] No Information - 3 Ohnesorge Santiago. . Referring Provider: Alexandre Tavarez, [address], [place], [address]. tel:[phone] [facility], [address], [place], [place], [address], [place] tel:[phone] [place] No Information - 3 Ohnesorge Santiago. . Referring Provider: Alexandre Tavarez, [address] [place], [address]. tel:[phone] [facility], [address], [place], [place], [address], [place] tel:[phone] [place] No Information - 3 Klstormyn David. . Referring Provider: Alexandre Tavarez, [address] [place], [address]. tel:[phone] [facility], [place], [place], [address], [place] tel:[phone] [place] No Information 0 - 3 Ohnesorge Santiago. . Referring Provider: Alexandre Tavarez, [address] [place], [address]. tel:[phone] [facility], [place], [place], [address], [place] tel:[phone] [place] No Information 0 - 3 Klahn David. . Referring Provider: Alexandre Tavarez, [address], [place], [address]. tel:[phone] [facility], [address], [place], [place], [address], [place] tel:[phone] [place] No Information Oct-0 3-202 3 Ohnesorge Santiago. . Referring Provider: Alexandre Tavarez, [address], [place], [address]. tel:[phone] [facility], [address], [place], [place], [address], [place] tel:[phone] [place] No Information Sep-2 3 Ohnesorge Santiago. . Referring Provider: Alexandre Tavarez, [address], [place], [address]. tel:[phone] [facility], [address], [place], [place], [address], [place] tel:[phone] [place] No Information Sep-2 3 Ohnesorge Santiago. . Referring Provider: Alexandre Tavarez, [address] [place], [address]. tel:[phone] [facility], [place], [place], [address], [place] tel:[phone] [place] No Information Sep-2 3 Ohnesorge Santiago. . Referring Provider: Alexandre Tavarez, [address], [place], [address]. tel:[phone] [facility], [address], [place], [place], [address], [place] tel:[phone] [place] No Information Sep-1 3 Ohnesorge Santiago. . Referring Provider: Alexandre Tavarez, [address], [place], [address]. tel:[phone] [facility], [place], [place], [address], [place] tel:[phone] [place] No Information Sep-1 3 Ohnesorge Santiago. . Referring Provider: Alexandre Tavarez, [address] [place], [address]. tel:[phone] [facility], [address], [place], [place], [address], [place] tel:[phone] [place] No Information Sep-1 3 Ohnesorge Santiago. . Referring Provider: Alexandre Tavarez, [address], [address]. tel:[phone] [facility] [address], [place], [place], [address], [place] tel:[phone] [place] No Information Sep-0 3 Ohnesorge Santiago. . Referring Provider: Alexandre Tavarez, [address], [address]. tel:[phone] [facility], [address], [address], [place] tel:[phone] [place] No Information Sep-0 3 Ohnesorge Santiago. . Referring Provider: Alexandre Tavarez, [address], [address]. tel:[phone] [facility] [address], [place], [place], [address], [place] tel:[phone] [place] No Information Oct-3 3 Ohnesorge Santiago. . Referring Provider: Alexandre Tavarez, [address], [address]. tel:[phone] [facility], [place], [place], [address], [place] tel:[phone] [place] No Information Oct- 3 Klahn David. . Referring Provider: Alexandre Tavarez, [address], [place], [address]. tel:[phone] [facility], [place], [place], [address], [place] tel:[phone] [place] No Information 3 Ohnesorge Santiago. . Referring Provider: Alexandre Tavarez, [address] [place], [address]. tel:[phone] [facility], [place], [place], [address], [place] tel:[phone] [place] No Information 3 Ronnyn David. . Referring Provider: Alexandre Tavarez, [address], [place], [address]. tel:[phone] [facility] [address], [place], [place], [address], [place] tel:[phone] [place] No Information 3 Ohnesorge Santiago. . Referring Provider: Alexandre Tavarez, [address] [place], [address]. tel:[phone] [facility], [place], [place], [address], [place] tel:[phone] [place] No Information 3 Ohnesorge Santiago. . Referring Provider: Alexandre Tavarez, [address], [place], [address]. tel:[phone] [facility], [place], [place], [address], [place] tel:[phone] [place] No Information 3 Ohnesorge Santiago. . Referring Provider: Alexandre Tavarez, [address] [place], [address]. tel:[phone] [facility], [place], [place], [address], [place] tel:[phone] [place] No Information 3 Klahn David. . Referring Provider: Alexandre Tavarez, [address], [place], [address]. tel:[phone] [facility], [address], [place], [place], [address], [place] tel:[phone] [place] No Information 3 Klahn David. . Referring Provider: Alexandre Tavarez, [address], [place], [address]. tel:[phone] [facility], [address], [place], [place], [address], [place] tel:[phone] [place] No Information 3 Kln David. . Referring Provider: Alexandre Tavarez, [address], [place], [address]. tel:[phone] [facility], [address], [place], [place], [address], [place] tel:[phone] [place] No Information 3 Ohnesorge Santiago. . Referring Provider: Alexandre Tavarez, [address] [place], [address]. tel:[phone] [facility], [place], [place], [address], [place] tel:[phone] [place] No Information 3 Ohnesorge Santiago. . Referring Provider: Alexandre Tavarez, [address] [place], [address]. tel:[phone] [facility], [place], [place], [address], [place] tel:[phone] [place] No Information 3 Ohnesorge Santiago. . Referring Provider: Alexandre Tavarez, [address] [place], [address]. tel:[phone] [facility], [address], [place], [place], [address], tel:[phone] [place] No Information 3 Hitesh Hernandez. . Referring Provider: Alexandre Morro Tavarez, [address] [place], [address]. tel:[phone] [facility], [address], [place], [place], [address], [place] tel:[phone] [place] No Information 3 Kwasistormykobe Hernandez. . Referring Provider: Alexandre Tavarez, [address] [place], [address]. tel:[phone] Family History Family Member Type Diagnosis Age At Onset No Information Payers Payer name Insurance type Covered constitution party ID Malick mujica(s) Medicare [place] [id number] Medicaid OON Write Off CI 00 Social History Type Description Quantity Date Captured Comments Sex Male Smoking Status No Information Chief Complaint And Reason For Visit No Information Reason For Referral Reason For Referral No Information Plan Of Treatment Date Type Action Status Appointment Daniel Hooker BOOKED Appointment Daniel Hooker BOOKED Appointment Daniel Hooker BOOKED Appointment Daniel Hooker BOOKED Appointment Daniel Hooker BOOKED Appointment Daniel Hooker BOOKED History Of Present Illness Encounter Date Complaint History Of Prese nt Illness No Information Functional Status Date Functional Assessmen t No Information Instructions Date Instruction Additional Infor mation Giving encouragement to exercise Related to Overweight Giving encouragement to exercise Related to Overweight Assessments Type Assessment Date No Information Patient Care Teams Name Effective Dates (start - stop) Status Members No Information
--- NOTE | ~2025-01-16 | XR_ITS ---
EXAMINATION: XR abdomen obstructive series DATE: 01/16/2025 11:08 INDICATION: Right flank pain TECHNIQUE: Supine and upright views of the abdomen. FINDINGS: The visualized lung parenchyma is normal.. There is a nonobstructive bowel gas pattern. Gas and stool are seen throughout the colon to the level of the rectum. There is no free air. There are bilateral renal stones. Lung bases unremarkable. IMPRESSION: 1. Bilateral nephrolithiasis. Reviewed, dictated and finalized at location O. S SALESPERSON
--- OUTSIDE RECORDS SUMMARY | 2025-01-16 18:45 | XMS_ITS | Clinical Summary ---
Author Organization [facility] Address [address] [place] [address] Care Team Providers Care White Washer Name Role Phone Non-Staff, Provider Primary Care Provider Jasmina kumar Encounters Date Type Department Care Team Description 12/13/2024 10:32 AM CDT - 12/13/2024 11:59 PM CDT Hospital Encounter [facility] [address] [place] [address] Dale Hooker MD Discharge Disposition: Home or Self Care (Routine Discharge) 12/13/2024 Travel from Last 3 Months Social History Tobacco Use Types Packs/Day Years Used Date Smoking Tobacco: Never Assessed Sex and Gender Information Value Date Recorded Sex Assigned at Male 12/13/2024 10:31 AM CDT Legal 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 Gender Identity Not on file Sexual Orientation Not on file Plan of Treatment Health Maintenance Due Date Last Done Comments Hepatitis C 08/11/1965 DTaP, Tdap and Td Vaccines (1 - Tdap) 08/11/1966 Zoster Vaccines (1 of 2) 08/11/1997 Annual Medicare Wellness Visit 08/11/2012 RSV Immunization or 60+ Years (1 - 1-dose 75+ series) 08/11/2022 COVID-19 Vaccine ( season) 2024 12/17/2022, 12/30/2021, 01/12/2021, Additional history exists Influenza Adult (#1) 2024 12/24/2020, 01/16/2020, 12/20/2018, Additional history exists Hepatitis A Vaccines Aged Out 04/16/2013 No long er eligible based on patient's age to complete this topic Pneumococcal Vaccine: 50+ Years Completed 03/01/2021, 12/20/2018 Meningococcal B Vaccine Aged Out No l onger eligible based on patient's age to complete this topic Meningococcal Vaccine Aged Out No jovana pierce eligible based on patient's age to complete this topic RSV Immunizations Under 20 Months Aged Out No longer eligible based on patient's age to complete this topic Procedures Procedure Name Priority Date/Time Associated Diagnosis Comments XR ABD KUB Routine 12/13/2024 10:46 AM CDT Abdominal pain, unspecified site from Last 3 Months Results * XR ABD KUB (12/13/2024 10:46 AM CDT) Anatomical Region Laterality Modality Abdomen Radiographic Cheryl ging 12/13/2024 3:19 PM CDT Impressions 12/13/2024 3:22 PM CDT IMPRESSION: 1. No renal or ureteric stones are identified on this modality. Referred By: Interpreted By: Stevenson Soler MD, 12/13/2024 3:19 PM Narrative 12/13/2024 3:22 PM CDT [address] [address] PROCEDURE: XR ABD KUB. 12/13/2024 10:38 AM. HISTORY: right flank pain TECHNIQUE: Supine image(s) of the abdomen and pelvis were obtained on 12/13/2024 at 740 hours. COMPARISON: X-ray left hip, 03/17/2023. X-ray right hip and pelvis, 03/17/2023 FINDINGS: LINES OR TUBES: None LUNG BASES: None. BOWEL GAS PATTERN: There are no abnormally dilated loops of bowel. FREE AIR: No free air is detected on this supine exam. CALCIFICATIONS/OTHER: No definite renal or ureteric stones are identified. MUSCULOSKELETAL: Degenerative changes are seen in the visualized portions of the spine. Procedure Note Stevenson Soler MD - 12/13/2024 [facility] [address] [place] [address] PROCEDURE: XR ABD KUB. 12/13/2024 10:38 AM. HISTORY: right flank pain TECHNIQUE: Supine image(s) of the abdomen and pelvis were obtained on12/13/2024 at 740 hours. COMPARISON: X-ray left hip, 03/17/2023. X-ray right hip and pelvis,03/17/2023 FINDINGS: LINES OR TUBES: None LUNG BASES: None. BOWEL GAS PATTERN: There are no abnormally dilated loops of bowel. FREE AIR: No free air is detected on this supine exam. CALCIFICATIONS/OTHER: No definite renal or ureteric stones are identified. MUSCULOSKELETAL: Degenerative changes are seen in the visualized portionsof the spine. IMPRESSION: 1. No renal or ureteric stones are identified on this modality. Referred By: Interpreted By: Stevenson Soler MD, 12/13/2024 3:19 PM [facility] Center[facility] MD GENERAL IMAGING Final Result from Last 3 Months Insurance [facility] MEDICAID MEDICAID MEDICARE Care Teams White Washer Relationship Specialty Start Date End Date Non-Staff, Provider PCP - General UNKNOWN PHYSICIAN SPECIALTY 03/17/23
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
--- OUTSIDE RECORDS SUMMARY | 2025-01-16 18:45 | XMS_ITS | Data Portability ---
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 D/w pt & his son about his findings, recent labs & imagines and further plan of care. Pt declined for any injection. All meds verified with them. Meds as directed. Diet and exercise explained. BP and DM dairy education given. Fall risk precautions explained. Cont f/u with Uro at [facility] as per schedule. Cont f/u with Ophtho as per schedule. Offered to refer to [employer]; but pt declined. HM: Colonoscopy - 2020, normal as per pt. Cont f/u with GI as per schedule. Flu - 01/03. Tdap - 2016. Pneumo - Pt got it. Shingrix - At pharmacy/HD. F/u in 3 months. A1c in 02/04. Annual labs in 07/06. [email or web address] Not available 10/15/2024 09:38:34 12/10/2024 12/10/2024 D/w pt about his findings and further plan of care. Explained about different options for her. Pt declined to go to ED. Will do US & x-ray abdomen. Meds as directed. Good liquid and fiber intake explained. Educated pt about alarming symptoms to monitor at home and call us back or get checked in ED. Pt verbalized understanding it. F/u as directed. [email or web address] Not available 12/10/2024 11:54:08 01/14/2025 01/14/2025 79 yo M with - DM II, improved - HTN - HLD - GERD - OA - S/P B/L TKR (2017, 2018) - ALLERGIC RHINITIS, seasonal - VIT B12 DEFICIENCY - VIT D DEFICIENCY - CHRONIC INSOMNIA HbA1c: 7.6(07/02/24) - 7.0(10/08/24) - 6.9(01/07/25) Annual labs: 07/02/24. D/w pt & his son about his findings, recent labs & imagines and further plan of care. Pt declined for any injection. All meds verified with them. Meds as directed. Diet and exercise explained. BP and DM dairy education given. Fall risk precautions explained. Cont f/u with Uro at [facility] as per schedule. Cont f/u with Ophtho as per schedule. Offered to refer to [employer]; but pt declined. HM: Colonoscopy - 2020, normal as per pt. Cont f/u with GI as per schedule. Flu - 01/03. Tdap - 2016. Pneumo - Pt got it. Shingrix - At pharmacy/HD. F/u in 3-4 months. A1c before next visit. Annual labs in 07/06. [email or web address] Not available 01/14/2025 11:37:15 Plan of Treatment Reminders Order Date Submit Date Provider Last Modified By Organization Details Last Modified Time Details Appointments None recorded. Lab glycohemogl obin, total, blood 2024 026 [facility] (Lab), [address] [place], [address], 11:22:24 glycohemogl obin, total, blood 2024 025 [email or web address] [id number] [facility] (Lab), [address] [place], [address], 11:05:05 Referral None recorded. Procedures None recorded. Surgeries None recorded. Imaging US, abdomen, complete - Please call patient to schedule. [address] ([facility]), [address] [place], [address], 09:06:24 XR, abdomen, complete [address] ([facility]), [address] [place], [address], 11:41:19 Medication Orders Naprosyn 500 mg tablet 2024 [facility] [address] [place], [address], 11:22:42 amlodipine 5 mg tablet 2024 025 [facility] [address] [place], [address], 11:22:41 enalapril maleate 20 mg tablet 2024 025 [facility] [address] [place], [address], 11:22:41 metformin 1,000 mg tablet 2024 025 [facility] [address] [place], [address], 11:22:43 glipizide 10 mg tablet 2024 025 [facility] [address] [place], [address], 11:22:46 Jardiance 25 mg tablet 2024 025 [facility] [address] [place], [address], 5 11:22:42 Januvia 100 mg tablet 2024 025 [facility] [address] [facility], [place], [address], 5 11:22:45 pioglitazon e 45 mg tablet 2024 [facility] [address] [facility], [place], [address], 5 11:22:48 ergocalcife rol (vitamin D2) 1,250 mcg (50,000 unit) capsule 2024 025 [facility] [address] [facility], [place], [address], 5 11:22:38 dexlansopra zole 60 mg capsule,bip hase delayed release 2024 [facility] [address] [facility], [place], [address], 5 11:22:41 Adult Low Dose Aspirin 81 mg tablet,maranda yed release 2024 025 [facility] [address] [facility], [place], [address], 5 11:22:41 atorvastati n 10 mg tablet 2024 025 [facility] [address] [facility], [place], [address], 5 11:22:42 trazodone 50 mg tablet 2024 025 [facility] [address] [facility], [place], [address], 5 11:22:44 Naprosyn 500 mg tablet 2024 025 [facility] [address] [place], [address], 5 10:07:00 amlodipine 5 mg tablet 2024 025 [facility] [address] [facility], [place], [address], 5 10:06:56 enalapril maleate 20 mg tablet 2024 025 [facility] [address] [facility], [place], [address], 5 10:06:58 ergocalcife rol (vitamin D2) 1,250 mcg (50,000 unit) capsule 2024 025 [facility] [address] [facility], [place], [address], 5 10:07:01 metformin 1,000 mg tablet 2024 025 [facility] [address] [facility], [place], [address], 5 10:06:59 glipizide 10 mg tablet 2024 025 [facility] [address] [place], [address], 5 10:06:56 Jardiance 25 mg tablet 2024 025 [facility] [address] [place], [address], 5 10:06:59 Januvia 100 mg tablet 2024 025 [facility] [address] [facility], [place], [address], 5 10:06:57 pioglitazon e 45 mg tablet 2024 025 [facility] [address] [place], [address], 5 10:06:55 fluconazole 150 mg tablet 2024 025 [facility] [address] [place], [address], 5 05:02:01 dexlansopra zole 60 mg capsule,bip hase delayed release 2024 025 [facility] [address] [place], [address], 5 10:06:58 Adult Low Dose Aspirin 81 mg tablet,maranda yed release 2024 025 [facility] [address] [facility], [place], [address], 5 10:06:58 atorvastati n 10 mg tablet 2024 025 [facility] [address] [facility], [place], [address], 5 10:07:00 trazodone 50 mg tablet 2024 025 [facility] [address] [place], [address], 5 10:07:01 Patient TargetsNo targets recorded. Patient InstructionsNo instructions recorded. Reason for Referral None Reported. Results Created Date Observation Date Name Description Value Unit Range Abnormal Flag Note LastModifiedBy Organization Detail LastModifiedTime 09/11/19 25 09/10/2024 urina lysis , dipst ick Leukocytes (reference range: negative michelle/ l) Negati ve Not Available [address], [place], [address], 09/10/2024 12:58:45 09/11/19 25 09/10/2024 urina lysis , dipst ick Nitrite (reference rage: negative mg/dl) negati ve Not Available [address], [address], 09/10/2024 12:58:45 09/11/19 25 09/10/2024 urina lysis , dipst ick Urobilinogen (reference range: 0.2-1 mg/dl) 0.2 Not Available [address], [address], 09/10/2024 12:58:45 09/11/19 25 09/10/2024 urina lysis , dipst ick Protein (reference range: negative mg/dl) Negati ve Not Available [address], [address], 09/10/2024 12:58:45 09/11/19 25 09/10/2024 urina lysis , dipst ick pH (reference range: 5-7) 5.5 Not Available [address], [address], 09/10/2024 12:58:45 09/11/19 25 09/10/2024 urina lysis , dipst ick Blood (reference range: negative Isiah/ l) Negati ve Not Available [address], [address], 09/10/2024 12:58:45 09/11/19 25 09/10/2024 urina lysis , dipst ick Specific [place] (reference range: 1.005-1.030) 1.010 Not Available [address], [address], 09/10/2024 12:58:45 09/11/19 25 09/10/2024 urina lysis , dipst ick Ketone (reference range: negative mg/dl) Negati ve Not Available [address], [address], 09/10/2024 12:58:45 09/11/19 25 09/10/2024 urina lysis , dipst ick Bilirubin (reference range: negative mg/dl) Negati ve Not Available [address], [address], 09/10/2024 12:58:45 09/11/19 25 09/10/2024 urina lysis , dipst ick Glucose (reference range: negative mg/dl) 1000 Not Available [address], [address], 09/10/2024 12:58:45 09/11/19 25 09/10/2024 urina lysis , dipst ick Appearance Clear Not Available [address], [address], 09/10/2024 12:58:45 09/11/19 25 09/10/2024 urina lysis , dipst ick Color Pale Yellow Not Available [address], [address], 09/10/2024 12:58:45 10/09/19 25 10/08/2024 HEMOG LOBIN A1C HA1C 7.0 % 4.0-6. 0 high Diabe lola Scree radha Crite venkatesh: <5.7% Consi stent with absen ce of diabe lola 5.7-6 .4% Consi stent with incre ased risk for diabe lola (pred iabet es) >OR=6 .5% Consi stent with diabe lola REFER ENCE: Diabe lola Care 2016, 39(Singh ppl.1 ):s13 -s22 Not Available [facility] ([facility]) [address] [place], [address], 10/08/2024 18:57:06 01/08/20 25 01/07/2025 HEMOG LOBIN A1C HA1C 6.9 % 4.0-6. 0 high Diabe lola Jarad Fink venkatesh: <5.7% Consi stent with absen ce of diabe lola 5.7-6 .4% Consi stent with incre ased risk for diabe lola (pred iabet es) >OR=6 .5% Consi stent with diabe lola REFER ENCE: Diabe lola Care 2016, 39(Singh ppl.1 ):s13 -s22 Not Available [facility] ([facility]) [address], [place], [address], 01/07/2025 19:41:14 01/17/2001/16/2025 imagi ng/di agnos tic resul t No observ ation record ed. [facility] [address], [place], [address], 01/16/2025 16:26:21 Result Notes None recorded. Problems Name Problem SNOMED Code Status Onset Date Resolution Date Notes Provider Name and Address Organization Details Recorded Time Eruption 322089832 Active 2024 Dale Hooker MD [address], [place], [address], [facility] 12:39:37 Cough 31397259 Active 2024 Dale Hooker MD [address], [place], [address], [facility] 12:40:34 Penile candidiasis 327287888 Active 2024 Dale Hooker MD [address], [place], [address], [facility] 12:47:04 Bronchitis 38109015 Active 2024 Dale Hooker MD [address], [place], [address], [facility] 5 12:48:23 Seasonal allergic rhinitis 565537068 Active 2024 Dale Hooker MD [address], [place], [address], [facility] 5 12:50:57 Type 2 diabetes mellitus without complication 050232041 Active 2024 Dale Hooker MD [address], [place], [address], [place] [facility] 5 13:04:02 Hypertensive disorder 51702155 Active 2024 Dale Hooker MD [address], [place], [address], [facility] 5 13:04:05 Hyperlipidemia 53155597 Active 2024 Dale Hooker MD [address], [place], [address], [facility] 5 13:04:09 Vitamin B12 deficiency (non anemic) 79056624 Active 2024 Dale Hooker MD [address], [place], [address], [facility] 5 10:18:43 Vitamin D deficiency 85354498 Active 2024 Dale Hooker MD [address], [place], [address], [facility] 5 10:18:53 Gastroesophage al reflux disease without esophagitis 069063037 Active 2024 Dale Hooker MD [address], [place], [address], [facility] 5 10:20:35 Osteoarthritis 184517307 Active 2024 Dale Hooker MD [address], [place], [address], [facility] 5 10:22:42 Type 2 diabetes mellitus 13983405 Active 2024 Dale Hooker MD [address], [place], [address], [email or web address] 5 10:27:39 Cobalamin deficiency 498032002 Active 2024 TOBI Radford [address], [place], [address], [employer] 5 10:36:44 Chronic insomnia 532125117 Active 2024 Dale Hooker MD [address], [place], [address], [facility] 5 09:31:28 Dysuria 52244718 Active 2024 Dale Hooker MD [address], [place], [address], [facility] 5 12:23:57 Urinary tract infectious disease 50991483 Active 2024 Dale Hooker MD [address], [place], [address], [facility] 5 12:41:53 Candidiasis of skin 01075147 Active 2024 Dale Hooker MD [address], [place], [address], [facility] 5 10:07:36 Right flank pain 314372911 Active 2024 Dale Hooker MD [address], [place], [address], [facility] 5 11:41:35 Right upper quadrant pain 905833318 Active 2024 Dale Hooker MD [address], [place], [address], [facility] 5 11:52:49 Gastroesophage al reflux disease 345589844 Active 2024 Dale Hooker MD [address] [facility], [place], [address], [facility] 5 11:52:59 Problem Notes None recorded. Procedures Surgical History Date Name Laterality Status Provider Name and Address Organization Details Recorded Time 9 replacement of bilateral knee joints completed Sury Garza RN [facility] 07/02/2024 10:54:01 8 cataract surgery completed Sury Garza RN [facility] 07/02/2024 10:54:47 Imaging Results None recorded. Procedure Notes None recorded. Medical Equipment None Reported. Allergies No known drug allergies Medications Name Sig Start Date Stop Date Status Note LastModified by Organization Details LastModified Time trazodone 50 mg tablet Take 1 tablet every day by oral route at bedtime for 90 days. 2024 active Not Available Not Available Not Avai lable cetirizine 10 mg tablet TAKE 1 TABLET BY MOUTH ONCE DAILY DIRECTED active Not Available Not Available No t Available atorvastati n 10 mg tablet Take 1 tablet every day by oral route at bedtime for 90 days. 2024 active Not Available Not Available Not Avai lable fluconazole 150 mg tablet Take 1 tablet every week by oral route as directed for 7 days. 10/29 completed Not Available Not Available Not Available benzonatate 200 mg capsule TAKE 1 CAPSULE BY MOUTH EVERY 8 HOURS NEEDED FOR 10 DAYS 07/02 completed Not Available Not Available Not Available enalapril maleate 20 mg tablet Take 1 tablet every day by oral route as directed for 90 days. 2024 active Not Available Not Available Not Avai lable phenazopyri dine 200 mg tablet TAKE 1 TABLET BY MOUTH THREE TIMES DAILY NEEDED FOR 5 DAYS 12/10 completed Not Available Not Available Not Available lisinopril 20 mg tablet TAKE 1 TABLET BY MOUTH ONCE DAILY active Not Available Not Available No t Available glipizide 10 mg tablet Take 1 tablet twice a day by oral route after meal(s) for 90 days. 2024 active Not Available Not Available Not Avai lable pioglitazon e 45 mg tablet Take 1 tablet every day by oral route as directed for 90 days. 2024 active Not Available Not Available Not Avai lable amlodipine 5 mg tablet Take 1 tablet every day by oral route for 90 days. 2024 active Not Available Not Available Not Avai lable ciprofloxac in 500 mg tablet TAKE 1 TABLET BY MOUTH TWICE DAILY DIRECTED FOR 5 DAYS 12/10 completed Not Available Not Available Not Available cyanocobala min (vit B-12) 1,000 mcg/mL injection solution Inject 1 mL every month by intramusc ular route for 180 days. 2024 active pt serge well Not Available Not Available Not Available metformin 1,000 mg tablet Take 1 tablet twice a day by oral route after meal(s) for 90 days. 2024 active Not Available Not Available Not Avai lable ergocalcife rol (vitamin D2) 1,250 mcg (50,000 unit) capsule Take 1 capsule every week by oral route as directed for 90 days. 2024 active Not Available Not Available Not Avai lable methylpredn isolone 4 mg tablets in a dose pack TAKE BY MOUTH DIRECTED ON INSIDE OF PACKAGE 07/02 completed Not Available Not Available Not Available Naprosyn 500 mg tablet Take 1 tablet every 12 hours by oral route as directed for 90 days. 2024 active Not Available Not Available Not Avai lable fluticasone propionate 50 mcg/actuati on nasal spray,suspe nsion USE 2 SPRAY(S) IN EACH NOSTRIL ONCE DAILY DIRECTED active Not Available Not Available No t Available Microlet Lancet USE 1 TO CHECK GLUCOSE ONCE DAILY active Not Available Not Available No t Available amoxicillin 875 mg-potassiu m clavulanate 125 mg tablet TAKE 1 TABLET BY MOUTH EVERY 12 HOURS DIRECTED FOR 10 DAYS 07/02 completed Not Available Not Available Not Available Adult Low Dose Aspirin 81 mg tablet,maranda yed release Take 1 tablet every day by oral route as directed for 90 days. 2024 active Not Available Not Available Not Avai lable Januvia 100 mg tablet Take 1 tablet every day by oral route as directed for 90 days. 2024 active Not Available Not Available Not Avai lable cholecalcif deb (vitamin D3) 50 mcg (2,000 unit) capsule Take 1 capsule every day by oral route after meal(s) for 30 days. 07/16 completed Not Available Not Available Not Available dexlansopra zole 60 mg capsule,bip hase delayed release Take 1 capsule every day by oral route in the morning for 90 days. 2024 active Not Available Not Available Not Avai lable Contour Next Test Strips USE 1 STRIP TO CHECK GLUCOSE ONCE DAILY active Not Available Not Available No t Available Jardiance 25 mg tablet Take 1 tablet every day by oral route as directed for 90 days. 2024 active Not Available Not Available Not Avai lable Vitals Date Recorded Body height Body mass index (BMI) Body weight Body temperature Oxygen saturation Oxygen saturation in Arterial blood by Pulse oximetry Heart rate Systolic And Diastolic Provider Name and Address Organization Details Last Updated DateTime 165.1 cm 24.4 kg/m2 72969.6 4 g 97.5 [degF] 97 % 97 % 81 /min 120/70 mm[Hg] Sury Garza RN [facility] 09:53:32 Date Recorded Oxygen saturation Oxygen saturation in Arterial blood by Pulse oximetry Provider Name and Address Organization Details Last Updated DateTime 12/10/2024 96 % 96 % Dale Hooker MD [address], [address] [place] [address], [address], [place] [employer] 12/10/2024 11:54:20 Date Recorded Body height Body mass index (BMI) Body weight Body temperature Heart rate Systolic And Diastolic Provider Name and Address Organization Details Last Updated DateTime 165.1 cm 24 kg/m2 59825.6 5 g 97.4 [degF] 71 /min 120/72 mm[Hg] Sury Garza RN [place] [employer] [facility] 11:38:39 Date Recorded Systolic And Diastolic Provider Name and Address Organization Details Last Updated DateTime 01/14/2025 120/66 mm[Hg] Nohemi Keen [address], [place], [address], [facility] 01/14/2025 11:38:34 Date Recorded Body height Body mass index (BMI) Body weight Body temperature Oxygen saturation Oxygen saturation in Arterial blood by Pulse oximetry Heart rate Provider Name and Address Organization Details Last Updated DateTime 165.1 cm 24.2 kg/m2 34272.2 9 g 97.5 [degF] 99 % 99 % 84 /min Sury Garza RN [facility] 10:59:28 Social History Question Answer Notes LastModified by [employer] Details LastModified Time Tobacco Smoking Status Never Smoker Sury Garza RN null, [facility] 07/02/2024 10:55:45 What Is Your Level Of Caffeine Consumption? Occasional One Cup Tea Per Day [email or web address] Information not available 07/02/2024 Sex: Unknown Functional Status Question Answer Note LastModified by [employer] Details LastModified Time Do you use any illicit or recreational drugs? No [email or web address] Information not available 07/02/2024 What is your level of alcohol consumption? None [email or web address] Information not available 07/02/2024 Mental Status None recorded. Family History Nothing Reported. Medical History No medical history recorded. Past Encounters Encounter ID Performer Location Encounter Start Date Encounter Closed Date Diagnosis/Indication Diagnosis SNOMED-CT Code Diagnosis ICD10 Code Diagnosis IMO Codes Diagnosis Note [id number] Dale Hooker MD [address] [address] 06/03/2024 12:19:29 06/03/2024 12:56:24 Eruption 751253373 R21 Cough 71827086 R05.9 Penile candidiasis 65347 8000 B37.49 Bronchitis 61736971 J40 Seasonal a llergic rhinitis 422612317 J30.2 Type 2 destiny betes mellitus without complication 405510902 E11.9 Hypertensive disorder 38 892137 I10 Hyperlipidemia 40252809 E78.5 [id number] Dale Hooker MD [address] [address] 07/02/2024 09:54:29 07/02/2024 10:57:36 Hypertensive disorder 77827822 I10 Hyperlipidemia 70649131 E78.5 Penile candidiasis 85073 8000 B37.49 resolved Seasonal a llergic rhinitis 131775654 J30.2 Type 2 destiny betes mellitus 57563173 E11.9 Screening for malignant neoplasm of prostate 271388478 Z12.5 Vitamin B1 2 deficiency (non anemic) 65158442 E53.8 Vitamin D deficiency 347 82180 E55.9 Gastroesop hageal reflux disease without esophagitis 573537423 K21.9 Osteoarthritis 886667635 M19.90 [id number] Dale Hooker MD [address] [address] 07/09/2024 12:37:44 07/09/2024 14:08:10 Cobalamin deficiency 211432928 E53.8 [id number] Dale Hooker MD [address] [address] 07/16/2024 09:08:05 07/16/2024 09:45:21 Hypertensive disorder 67299395 I10 Type 2 destiny betes mellitus 51539289 E11.9 Hyperlipidemia 86082652 E78.5 Penile candidiasis 22587 8000 B37.49 resolved Seasonal a llergic rhinitis 490073541 J30.2 Vitamin B1 2 deficiency (non anemic) 78028461 E53.8 Vitamin D deficiency 347 22743 E55.9 Gastroesop hageal reflux disease without esophagitis 055032663 K21.9 Osteoarthritis 358135636 M19.90 Chronic insomnia 3479204 04 F51.04 [id number] Dale Hooker MD [address] [address] 07/24/2024 13:54:30 07/24/2024 14:09:26 Vitamin B12 deficiency (non anemic) 78047961 E53.8 [id number] Dale Hooker MD [address] [address] 07/30/2024 10:49:55 07/30/2024 11:15:01 Vitamin B12 deficiency (non anemic) 85869034 E53.8 [id number] Dale Hooker MD [address] [address] 08/30/2024 14:06:47 08/30/2024 14:40:55 Vitamin B12 deficiency (non anemic) 43485972 E53.8 [id number] Dale Hooker MD [address] [address] 09/10/2024 12:19:03 09/10/2024 12:55:07 Dysuria 87823997 R30.0 81162 Urinary tr act infectious disease 25407819 N39.0 [id number] Dale Hooker MD [address] [address] 10/08/2024 09:59:42 10/08/2024 12:00:03 [id number] Dale Hooker MD [address] [address] 10/15/2024 09:36:53 10/15/2024 10:32:18 Hypertensive disorder 73063694 I10 Type 2 destiny betes mellitus 52535221 E11.9 Hyperlipidemia 97480133 E78.5 Penile candidiasis 68494 8000 B37.49 resolved Seasonal a llergic rhinitis 380353949 J30.2 Vitamin B1 2 deficiency (non anemic) 41703752 E53.8 Vitamin D deficiency 347 35672 E55.9 Gastroesop hageal reflux disease without esophagitis 195539719 K21.9 Osteoarthritis 379160817 M19.90 Chronic insomnia 1356657 04 F51.04 271967 Candidiasis of skin 4988 3006 B37.2 689918 [id number] Dale Hooker MD [address] [address] 12/10/2024 11:29:46 12/10/2024 11:56:39 Right flank pain 740604575 R10.9 [id number] Right uppe r quadrant pain 315807303 R10.11 6708749 Gastroesop hageal reflux disease 991680297 K21.9 [id number] Dale Hooker MD [address] [address] 01/07/2025 10:07:42 01/07/2025 10:46:42 [id number] Dale Hooker MD [facility] [address] 01/14/2025 10:50:00 01/14/2025 11:41:42 Type 2 diabetes mellitus 40173371 E11.9 Hypertensive disorder 38 562085 I10 Hyperlipidemia 11007208 E78.5 Penile candidiasis 84919 8000 B37.49 resolved Seasonal a llergic rhinitis 869489743 J30.2 Vitamin B1 2 deficiency (non anemic) 37631116 E53.8 Vitamin D deficiency 347 38966 E55.9 Gastroesop hageal reflux disease without esophagitis 513219019 K21.9 Osteoarthritis 709174301 M19.90 Chronic insomnia 2966494 04 F51.04 864809 Health Concerns Section Related Observation LastModified by Organization Detai ls LastModified Time None Recorded Concern Status LastModified by Organization Details LastModified Time None Recorded Advance Directives Directive None Recorded Payers Insurance Date Sequence Insurance Name Policy Number Policy Lopez Covered Member ID Lopez Member ID Guarantor Name 01/01/2025 2 [place]: [facility] [id number] [facility] 01/11/2025 1 [place]ARE[place] (MEDICARE) [facility] [id number] [employer] [facility] 01/14/2025 2 MED[place]: [facility] [id number] [facility] Notes Date Note Type Note Provider Name and Address Organization Details Recorded Time 10/15/2024 text/html Pt is here for f/u on his lab, meds and chronic conditions. Doing overall well. Denies any problem with meds. Denies any new concern. Pt has been seeing Urologist at [facility] and all is good as per son. Dale Hooker MD [address] [place], [place] [address], [facility] [address], [place], [address], [facility] 10/15/2024 10:18:07 12/10/2024 text/html ACV: C/o RUQ and Rt flank area pain for last 5-6 days. Denies any other symptoms with it. No n/v/c/d/blood in stool. Denies any urinary symptoms/h/o kidney stones. Denies any recent fall/trauma. No other concern. Dale Hooker MD [address], [facility] [address], [place], [address], [facility] 12/10/2024 11:54:51 01/14/2025 text/html Pt is here for f/u on his lab, x-ray, US, meds and chronic conditions. Doing overall well. Denies any problem with meds. Denies any new concern. Pt has not gone for US and x-ray yet. Pt says his Rt flank pain got better and no more concern with it now. Pt has been seeing Urologist at [facility] and all is good as per son. Dale Hooker MD [address], [facility] [address], [place], [address], [facility] 01/14/2025 11:38:50
== END 2025-01-16 10:37 | disposition home or self-care (01) ==
PROVIDERS: PCP Family Medicine; Visit Provider Family Medicine
DX: R10.9 Unspecified abdominal pain (principal)
CPT/HCPCS: 74019

== ENCOUNTER 2025-01-30 09:40 | Outpatient (CLI) | payer MEDICARE, MEDICAID, SELFPAY ==
--- NOTE | ~2025-01-30 | US_ITS ---
Examination: US abdomen complete Clinical History: right flank pain . Comparison: None Technique: Complete abdominal sonography Findings: Liver: Normal size. Normal echotexture. No intrahepatic biliary ductal dilatation. Normal hepatopedal flow main portal vein. Common duct: Normal caliber, 5 mm. Gallbladder: No stones. No wall thickening. No pericholecystic fluid. Spleen: Enlarged. Pancreas: Largely obscured by bowel gas. Kidneys: Bilateral cysts. 9 mm stone left kidney. Aorta: No aneurysmal dilatation. Retrohepatic IVC: Unremarkable. IMPRESSION: 1. No acute findings. 2. Left renal stone. No hydronephrosis. Reviewed, dictated and finalized at location R. OUND SUPERVISOR
--- OUTSIDE RECORDS SUMMARY | 2025-01-30 11:21 | XMS_ITS | Clinical Summary ---
Author Organization [facility] Address [address] [place] [address] Care Team Providers Care Sheather Name Role Phone Non-Staff, Provider Primary Care Provider Jasmina kumar Encounters Date Type Department Care Team Description 12/13/2024 10:32 AM CDT - 12/13/2024 11:59 PM CDT Hospital Encounter [facility] [address] [place] [address] Dale Hooker MD Discharge Disposition: Home or Self Care (Routine Discharge) 12/13/2024 Travel from Last 3 Months Social History Tobacco Use Types Packs/Day Years Used Date Smoking Tobacco: Never Assessed Sex and Gender Information Value Date Recorded Sex Assigned at Male 12/13/2024 10:31 AM CDT 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 12/13/2024 10:38 AM. [...] Procedure Note Stevenson Soler MD - 12/13/2024 [facility] [address] [place] [address] PROCEDURE: XR ABD KUB. 12/13/2024 10:38 AM. [...] By: Stevenson Soler MD, 12/13/2024 3:[facility] PM [facility] Final Result from Last 3 Months Insurance [facility] MEDICA[facility] MEDICAID MEDICARE Care Teams Sheather Relationship Specialty Start Date End Date Non-Staff, Provider PCP - General UNKNOWN PHYSICIAN SPECIALTY 03/17/23
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
== END 2025-01-30 09:41 | disposition home or self-care (01) ==
PROVIDERS: PCP Family Medicine; Visit Provider Family Medicine
DX: R10.9 Unspecified abdominal pain (principal); N20.0 Calculus of kidney
CPT/HCPCS: 76700